=== PATIENT | female | born 1990 | race Caucasian/White ===

== ENCOUNTER 2021-05-14 14:29 | Outpatient (CLI) | payer SELFPAY ==
[~2021-05-14] VITALS: Ht 167.6 cm; Wt 72.7 kg
[2021-05-14] VITALS (8 sets, daily range): BP systolic 106–123; BP diastolic 46–64; PULSE 83–99; TEMP 98.4–98.6
[2021-05-14] MEDS ORDERED: CELEXA10 MG PO (15:27)
[2021-05-14] MEDS ORDERED: COMPLETE MULTI1 TAB PO (15:28)
[2021-05-14] MEDS ORDERED: PRENATAL TABLET PO (15:29)
[2021-05-14] MEDS ORDERED: COLACE 100100 MG/CAP PO (15:30)
== END 2021-05-14 16:17 | disposition home or self-care (01) ==
LOC: EUO 14:29
DX: U07.1 COVID-19 (principal)
CPT/HCPCS: M0247; Q0247

== ENCOUNTER 2021-07-22 10:11 | Outpatient (RCR) | payer OTHER ==
[~2021-07-22] VITALS: Ht 165.1 cm; Wt 77.6 kg
[~2021-07-22 10:11] MED LIST: CELEXA10 MG PO; COLACE 100100 MG/CAP PO; COMPLETE MULTI1 TAB PO; PRENATAL TABLET PO
--- NOTE | 2021-07-22 10:20 | NUR ---
Patient ambulorty to [facility]. FHR/TOCO monitors placed and explained. Patient here for NST for twin . Patient denies any leaking of fluid/vaginal bleeding/regular contractions/decreased movement. Plan of care discussed. 1110: Difficulty tracing Baby B, this RN at bedside adjusting monitor. 1130: Patient off monitors and patient given discharge instructions. Patient to return 07/29/21 at 1500 for NST. Patient verbalizes understanding. 1140: Patient ambulatory off unit.
[2021-07-22] MEDS ORDERED: VITAMIN D31000 I1 PO (11:15)
[2021-07-22] MEDS ORDERED: ASPIRIN 81M81 MG/TA2 PO (11:17)
== END 2021-08-06 | disposition home or self-care (01) ==
LOC: LDRO
DX: O30.93 Multiple gestation, unspecified, third trimester (principal); Z3A.33 33 weeks gestation of pregnancy

== ENCOUNTER 2021-08-07 10:03 | Outpatient (RCR) | payer OTHER ==
[~2021-08-07] VITALS: Ht 165.1 cm; Wt 83.0 kg
[~2021-08-07 10:03] MED LIST changes: +ASPIRIN 81M81 MG/TA2 PO; +VITAMIN D31000 I1 PO
--- NOTE | 2021-08-07 10:14 | NUR ---
1014- Pt arrived on unit ambulatory for scheduled NST for twins. Pt reports occasional contractions but nothing regular, denies any leaking of fluid or vaginal bleeding and reports normal movement. EFM and toco monitors started. 1020- This RN at the bedside attempting to adjust EFM. Audible movement. 1054- Dr. Ríos notified. FHR tracing reviewed. Orders for discharge home received. Follow up instructions reviewed.
--- NOTE | 2021-08-12 11:10 | NUR ---
1030 Patient ambulatory to [facility] for scheduled NST for twin gestation. 1110 Reactive NST obtained. Discharge instructions reviewed. Patient does not need to return for an NST next week. She is scheduled for a primary on Tuesday08/21/21. 1115 Patient discharged home.
== END 2021-08-12 11:15 | disposition home or self-care (01) ==
LOC: EDSTATUS 10:03 → LDRO 10:03
DX: Z34.93 Encounter for supervision of normal pregnancy, unspecified, third trimester (principal); Z3A.35 35 weeks gestation of pregnancy

== ENCOUNTER 2021-08-21 05:31 | Inpatient (IN) | payer OTHER ==
[2021-08-21] VITALS (18 sets, daily range): BP systolic 111–175; BP diastolic 70–99; PULSE 51–98; TEMP 98–98.7
[~2021-08-21] VITALS: Ht 165.1 cm; Wt 84.5 kg
--- NOTE | 2021-08-21 05:40 | NUR ---
0540 ADMIT TO 210 FOR PRIMARY C/SECT. EFM ON. PERMITS SIGNED.
[2021-08-21] MEDS ORDERED: PEPCID 20MG TAB20 MG PO (06:24)
[2021-08-21 06:27] LABS: BASO % 0.3 % (0.0-2.0); EOS # 0.2 K/mm3 (0.0-0.7); EOS % 1.6 % (0.0-4.0); GRAN # 6.4 K/mm3 (1.4-6.5); GRAN % 58.4 % (42.2-75.2); HEMOGLOBIN 12.3 g/dl (12.5-16.0); LYMPH # 2.8 K/mm3 (1.2-3.4); LYMPH % 25.5 % (20.0-51.0); MEAN CELL VOLUME 87 fl (80.0-100.0); MEAN CORPUSCULAR HEMOGLOBIN 31 pg (27-31); MEAN CORPUSCULAR HGB CONC 36 g/dl (33.0-37.0); MEAN PLATELET VOLUME 11.3 fl (7.4-10.4); MONO # 1.5 K/mm3 (0.1-0.6); MONO % 13.3 % (1.7-9.3); PLATELET COUNT 146 K/mm3 (130-400); RED BLOOD COUNT 3.94 M/mm3 (4.10-5.30); REDCELL DISTRIBUTION WIDTH-CV 12.6 % (11.5-14.5)
[2021-08-21 06:29] LABS: HEMATOCRIT 34.3 % (37.0-47.0)
--- NOTE | 2021-08-21 17:00 | NUR ---
This RN at bedside and patient assisted to edge of bed to dangle feet, patient attempts to stand and feet and ankles still too numb to walk. Patient sitting on edge of bed.
[2021-08-22 03:35] VITALS: BP 157/86; PULSE 84; TEMP 98.2
[2021-08-22 08:30] VITALS: BP 139/87; PULSE 72; TEMP 98.3
[2021-08-22 14:57] VITALS: BP 138/80; PULSE 78; TEMP 97.4
[2021-08-22 20:30] VITALS: BP 160/86; PULSE 63; TEMP 98
[2021-08-23 08:15] VITALS: BP 149/92; PULSE 76; TEMP 98.7
[2021-08-23 16:45] VITALS: BP 144/83; PULSE 94; TEMP 97.7
[2021-08-23 20:30] VITALS: BP 141/83; PULSE 85; TEMP 98.8
[2021-08-23 23:15] VITALS: BP 142/82; PULSE 85; TEMP 99
--- NOTE | 2021-08-23 23:15 | NUR ---
5089 PT CALLED OUT STATING HAVING CHEST PAIN AND FEELS LIKE HEART IS POUNDING. VS DONE AND STABLE. STATES DOES HAVE ANXIETY AND TAKE CELEXA EVERY DAY BUT HAS NOT TAKEN IT FOR TWO DAYS. DR COATES NOTIFIED AND PT INSTRUCTED TO START TAKING CELEXA DAILY.
[2021-08-24] MEDS ORDERED: PROCARDIA XL 6060 MG PO (08:37)
[2021-08-24] MEDS ORDERED: PERCOCET 325 MG1 TA2 PO (08:38)
[2021-08-24] MEDS ORDERED: MOTRIN 800800 MG/TAB PO (08:38)
--- NOTE | 2021-08-24 09:50 | NUR ---
Initial visit; Parents thanked for offering congratulations and God's Blessings for the of their twin boys. thanked family for choosing our hospital.
[2021-08-24 10:00] VITALS: BP 127/82; PULSE 92; TEMP 97.6
== END 2021-08-24 15:20 | disposition home or self-care (01) | DRG 788 ==
LOC: OB 05:31 → LDR 07:56 → OB 08-24 15:20
PROVIDERS: ADMIT Obstetrics & Gynecology
PROC: 10D00Z1 Extraction of Products of Conception, Low, Open Approach (ICD-10-PCS; principal; 2021-08-21)
DX: O32.8XX1 Maternal care for other malpresentation of fetus, fetus 1 (principal); O99.344 Other mental disorders complicating childbirth; O10.93 Unspecified pre-existing hypertension complicating the puerperium; F41.9 Anxiety disorder, unspecified; O30.043 Twin pregnancy, dichorionic/diamniotic, third trimester; Z3A.37 37 weeks gestation of pregnancy; Z37.2 Twins, both liveborn; Z86.16 Personal history of COVID-19
CPT/HCPCS: J0690; J1100; J1885; J2405; J2590; J2765; J7120